=== PATIENT | male | born 1940 | race Caucasian/White ===

== ENCOUNTER 2022-10-31 07:06 | Day surgery (SDC) | payer OTHER ==
[2022-10-25 11:09] LABS: BASOPHILS % (AUTO) 0.6 % (0-1); EOSINOPHILS # (AUTO) 0.2 X10'3 (0-0.9); EOSINOPHILS % (AUTO) 2.9 % (0-6); LYMPHOCYTES # (AUTO) 1.3 X10'3 (1.1-4.8); LYMPHOCYTES % (AUTO) 22.6 % (21-51); MEAN CORPUSCULAR HEMOGLOBIN 27.4 PG (27.0-31.0); MEAN CORPUSCULAR HGB CONC 33.1 g/dL (33.0-36.5); MEAN CORPUSCULAR VOLUME 82.9 FL (78-98); MEAN PLATELET VOLUME 7.4 FL (7.4-10.4); MONOCYTES # (AUTO) 0.6 X10'3 (0-0.9); MONOCYTES % (AUTO) 10.5 % (2-12); NEUTROPHILS # (AUTO) 3.6 X10'3 (1.8-7.7); NEUTROPHILS % (AUTO) 63.4 % (42-75); PRE OP HEMATOCRIT 38.5 % (42.0-52.0); PRE OP HEMOGLOBIN 12.7 g/dL (14.0-17.9); PRE OP PLATELET COUNT 210 X10'3 (140-440); RED BLOOD COUNT 4.64 X10'6 (4.70-6.10); RED CELL DISTRIBUTION WIDTH 17.9 % (11.5-14.5)
[2022-10-25 11:33] LABS: ALBUMIN 3.8 G/DL (3.4-5.0); ALKALINE PHOSPHATASE 75 IU/L (46-116); BLOOD UREA NITROGEN 19 MG/DL (7-18); BUN/CREATININE RATIO 13.5 (10.0-20.0); CHLORIDE 105 MMOL/L (99-107); CREATININE 1.41 MG/DL (0.60-1.10); PRE OP ALT 20 U/L (30-65); PRE OP ANION GAP 11 (8-16); PRE OP AST 20 U/L (10-37); PRE OP BILIRUB, TOTAL 0.5 MG/DL (0.0-1.0); PRE OP GLUCOSE 105 MG/DL (70-104); PRE OP POTASSIUM 3.7 MMOL/L (3.4-5.1); PRE OP SODIUM 143 MMOL/L (135-145); TOTAL CARBON DIOXIDE 26.8 MMOL/L (24-32); TOTAL PROTEIN 7.8 G/DL (6.4-8.2); eGFR 48 ML/MIN
[~2022-10-31] VITALS: Ht 170.2 cm; Wt 67.6 kg
[2022-10-31] VITALS (16 sets, daily range): BP systolic 130–179; BP diastolic 56–83
[~2022-10-31 07:06] MED LIST: AMIO200T27 PO; ASPI-611 PO; ATOR40TA72 PO; CHOL100046 PO; CITA20TA28 PO; DABI150C PO; DOCUMENT DATE & TIME OF BETA-BLOCKER PO ONE; EMPA10TA PO; FLO0.4C; FURO20TA4 PO; LACT1TAB6 PO; METO-384 PO; POTA-206 PO; SPIR25TA5 PO; TRAZ-251 PO; cefazolin 2gm/D5W 100mL 100 ML IV ONE; famotidine 20mg tablet PO ONE; ringers solution, lacted 1,000 ML IV SCH
[2022-10-31] MEDS ORDERED: proCHLORperazine 10 MG/2 ml inj IV PRN (08:40)
[2022-10-31] MEDS ORDERED: morphine 2 MG/ML inj. syringe IV PRN (08:40)
[2022-10-31] MEDS ORDERED: meperidine/PF 25mg/ml syringe IV PRN ×2 (08:40)
[2022-10-31] MEDS ORDERED: morphine 4 MG/ML inj SYRINge IV PRN (08:40)
[2022-10-31] MEDS ORDERED: ondansetron/PF 4mg/2ml inj IV PRN (08:40)
[2022-10-31] MEDS ORDERED: ringers solution, lacted 1,000 ML IV SCH (08:40)
[2022-10-31] MEDS ORDERED: BUPIVAcaine 0.5% inj/PF 30 ML ONE (09:07)
[2022-10-31] MEDS ORDERED: fentaNYL/PF 50MCG/1 ML 2ML syringe ONE (09:23)
[2022-10-31] MEDS ORDERED: midazolam 1 mg/ML 2ml injection ONE (09:25)
[2022-10-31] MEDS ORDERED: acetaminophen 1,000mg/100ml IV 100 ML IV ONE (09:31)
[2022-10-31] MEDS ORDERED: etomidate 2mg/ml inj. ONE (09:31)
[2022-10-31] MEDS ORDERED: BUPIVAcaine 0.5% inj/PF 30 ml vial IJ ONE (09:41)
[2022-10-31] MEDS ORDERED: ondansetron/PF 4mg/2ml inj ONE (10:05)
[2022-10-31] MEDS: meperidine/PF 25mg/ml syringe IV PRN ×2 (10:48→11:08)
--- NOTE | 2022-10-31 12:33 | NUR ---
I HAVE REVIEWED D/C INSTRUCTIONS WITH PATIENT AND THEY HAVE VERBALIZED UNDERSTANDING OF INSTRUCTIONS. PT ABLE TO VOID IN URINAL 450 CC'S. PATIENT D/C HOME WITH ALL BELONGINGS AND FAMILY GAVE TRANSPORT Addendum: 10/31/22 at 1244 by Lilly Trinh RN Amended: Links added.
== END 2022-10-31 12:33 | disposition home or self-care (01) ==
LOC: PAS 07:06
PROVIDERS: ATTEND Surgery
DX: K40.90 Unilateral inguinal hernia, without obstruction or gangrene, not specified as recurrent (principal); I25.2 Old myocardial infarction; J44.9 Chronic obstructive pulmonary disease, unspecified; G43.909 Migraine, unspecified, not intractable, without status migrainosus; G89.29 Other chronic pain; F43.10 Post-traumatic stress disorder, unspecified; I48.91 Unspecified atrial fibrillation; I13.0 Hypertensive heart and chronic kidney disease with heart failure and stage 1 through stage 4 chronic kidney disease, or unspecified chronic kidney disease; N18.4 Chronic kidney disease, stage 4 (severe); I50.9 Heart failure, unspecified; Z95.810 Presence of automatic (implantable) cardiac defibrillator; Z98.890 Other specified postprocedural states; Z87.891 Personal history of nicotine dependence; Z86.73 Personal history of transient ischemic attack (TIA), and cerebral infarction without residual deficits; Z88.8 Allergy status to other drugs, medicaments and biological substances; Z79.899 Other long term (current) drug therapy
CPT/HCPCS: 36415; 49505; 80053; 82948; 85025; C1781; J0131; J0690; J2175; J2250; J2405; J3010; J3490; J7030; J7120; S0020; Z7506; Z7512; A4215; A4615; A4618; A6449; A7000